=== PATIENT | male | born 1975 | race Caucasian/White ===

== ENCOUNTER 2016-07-19 | Inpatient (IN) | payer BC ==
[~2016-07-19] MED LIST: CLINDAMYCIN HC300 M2 PO; LEVAQUIN750 M1 PO
[2016-07-21] MEDS ORDERED: BACTRIM DS TAB1 EAC2 PO (09:48)
[2016-07-21] MEDS ORDERED: LORTAB 5-325 M1 EAC1 PO (09:49)
[2016-07-21] MEDS ORDERED: COLACE100 M1 PO (09:51)
[2016-07-21] MEDS ORDERED: STOP HOME MEDICATION (09:52)
[2016-09-15] MEDS ORDERED: NEURONTIN100 M1 PO (10:07)
== END 2016-07-21 13:30 | DRG 581 ==
DX: S91.301A Unspecified open wound, right foot, initial encounter (principal); G62.9 Polyneuropathy, unspecified; H91.8X1 Other specified hearing loss, right ear; R20.8 Other disturbances of skin sensation; Z98.1 Arthrodesis status